=== PATIENT | female | born 1995 | race Caucasian/White ===

== ENCOUNTER 2018-02-23 08:16 | Emergency (ER) | payer BC ==
[2018-02-23 08:40] VITALS: BP 153/92
--- NOTE | 2018-02-23 09:01 | UC ---
Lower Extremity/Ankle HPI - HPI Summary HPI Summary: PAIN TOWARD FRONT OF LEFT HEEL SINCE STARTING TO WALK FOR EXERCISE A MONTH AGO. ADMITS TO WEARING SANDALS WHEN SHE WALKS - History of Current Complaint Chief Complaint: UCLowerExtremity Stated Complaint: LEFT FOOT PAIN Time Seen by Provider: 02/23/18 08:31 Hx Obtained From: Patient Hx Last Menstrual Period: "very irregular periods" Onset/Duration: Gradual Onset Pain Intensity: 7 Aggravating Factor(s): Standing, Ambulation Alleviating Factor(s): Rest Able to Bear Weight: Yes - Allergies/Home Medications Allergies/Adverse Reactions: Allergies Allergy/AdvReac Type Severity Reaction Status Date / Time No Known Allergies Allergy Verified 02/23/18 08:36 Home Medications: Home Medications Menthol/Aloe Vera Extract [Icy Hot 16% Power Gel] 1 applic TOPICAL ONCE [History Confirmed 02/23/18] PMH/Surg Hx/FS Hx/Imm Hx Previously Healthy: Yes - Surgical History Surgical History: Yes Surgery Procedure, Year, and Place: T&A, ~2005, [place] - Family History Known Family History: Positive: None - Social History Occupation: Works From/At Home - [employer] Alcohol Use: Occasionally Substance Use Type: None Smoking Status (MU): Never Smoked Tobacco - Immunization History Vaccination Up to Date: Yes Review of Systems Constitutional: Negative Skin: Negative Eyes: Negative ENT: Negative Respiratory: Negative Cardiovascular: Negative Gastrointestinal: Negative Genitourinary: Negative Motor: Negative Neurovascular: Negative Musculoskeletal: Other: - L HEEL PAIN Neurological: Negative Psychological: Negative Is Patient Immunocompromised?: No All Other Systems Reviewed And Are Negative: Yes Physical Exam Triage Information Reviewed: Yes Appearance: Well-Appearing Vital Signs: Initial Vital Signs Temp 98.9 F 02/23/18 08:33 Pulse 66 02/23/18 08:33 Resp 16 02/23/18 08:33 BP 153/92 02/23/18 08:33 Pulse Ox 98 02/23/18 08:33 Vital Signs Reviewed: Yes Eyes: Positive: Conjunctiva Clear ENT: Positive: Normal ENT inspection Neck: Positive: Supple, Nontender Respiratory: Positive: Lungs clear, Normal breath sounds Cardiovascular: Positive: RRR, No Murmur Abdomen Description: Positive: Nontender, No Organomegaly, Soft Bowel Sounds: Positive: Present Musculoskeletal: Positive: Other: - LLE: HIP, KNEE, ACHILLES AND ANKLE ARE NON TENDER. FOOT HAS NO GROSS DEFORMITY, SWELLING OR DISCOLORATION. TENDER TO ANTERIOR HEEL ON PLANTAR SURFACE. FOOT HAS FULL S/V/M FUNCTION. Neurological: Positive: Alert Psychological: Positive: Age Appropriate Behavior Skin Exam: Normal Lower Extremity Course/Dx - Course Course Of Treatment: EXAM C/W PLANTAR FASCIITIS. NO CONCERN FOR FX OR INFECTION. BP ELEVATED ON THIS VISIT AND D/W PT. NEED FOR F/U AND RECHECK DISCUSSED WELL. - Differential Dx/Diagnosis Provider Diagnoses: PLANTAR FASCIITIS. ELEVATED BP Discharge - Sign-Out/Discharge Documenting (check all that apply): Patient Departure - Discharge Plan Condition: Stable Disposition: HOME Prescriptions: Naproxen [Naprosyn 500 mg tab] 500 mg PO BID 5 Days #10 tablet Patient Education Materials: Plantar Fasciitis Exercises (GEN), Plantar Fasciitis (ED), Hypertension (ED) Referrals: KAI Bundy [Medical Doctor] - As Soon As Possible Mario Loera MD [Medical Doctor] - Additional Instructions: FOLLOW UP DR LOERA IF FOOT NOT IMPROVING WITHIN THE WEEK OR SOONER IF WORSE. DO NOT WEAR SANDALS WHEN YOU WALK-WEAR SNEAKERS WITH ARCH SUPPORT. - Billing Disposition and Condition Condition: STABLE Disposition: Home
== END 2018-02-23 09:11 | disposition home or self-care (01) ==
LOC: UCCORT 08:16
DX: M72.2 Plantar fascial fibromatosis (principal); R03.0 Elevated blood-pressure reading, without diagnosis of hypertension
CPT/HCPCS: 99202; G0463

== ENCOUNTER 2019-07-14 15:57 | Emergency (ER) | payer BC ==
[2019-07-14 16:40] VITALS: BP 174/99
--- NOTE | 2019-07-14 16:43 | UC ---
Respiratory Complaint HPI - HPI Summary HPI Summary: Pt had an unproductive cough for 2 weeks before . Around hayden time her cough is now a "deep, harsh" cough, sinus congestion and pressure, wheezing, low grade fever. Denies body aches. - History of Current Complaint Chief Complaint: UCGeneralIllness Stated Complaint: COUGH Hx Obtained From: Patient Hx Last Menstrual Period: 05/29/19 ?: No Onset/Duration: Sudden Onset, Lasting Weeks Timing: Constant Severity Initially: Mild Severity Currently: Moderate Pain Intensity: 0 Character: Cough: Productive Aggravating Factors: Exertion, Deep Breaths Associated Signs And Symptoms: Positive: URI, Nasal Congestion, Sinus Discomfort - Allergies/Home Medications Allergies/Adverse Reactions: Allergies Allergy/AdvReac Type Severity Reaction Status Date / Time No Known Allergies Allergy Verified 07/14/19 16:34 Home Medications: Home Medications Dm/Acetaminophen/Doxylamine [Nighttime Cold and Flu Liquid] 1 dose PO ONCE 07/14 [History Confirmed 07/14/19] PMH/Surg Hx/FS Hx/Imm Hx Previously Healthy: Yes - Surgical History Surgical History: Yes Surgery Procedure, Year, and Place: T&A, ~2005, [place] - Family History Known Family History: Positive: Hypertension - Social History Alcohol Use: Occasionally Substance Use Type: None Smoking Status (MU): Never Smoked Tobacco - Immunization History Vaccination Up to Date: Yes Review of Systems All Other Systems Reviewed And Are Negative: Yes Constitutional: Positive: Fatigue ENT: Positive: Sore Throat, Ear Ache, Nasal Discharge, Sinus Congestion Respiratory: Positive: Cough Is Patient Immunocompromised?: No Physical Exam Triage Information Reviewed: Yes Appearance: No Pain Distress, Well-Nourished, Ill-Appearing Vital Signs: Initial Vital Signs Temp 97.3 F 07/14/19 16:34 Pulse 76 07/14/19 16:34 Resp 16 07/14/19 16:34 BP 174/99 07/14/19 16:34 Pulse Ox 98 07/14/19 16:34 Vital Signs Reviewed: Yes Eye Exam: Normal ENT: Positive: Pharyngeal erythema, TM bulging, TM red Dental Exam: Normal Neck exam: Normal Respiratory: Positive: Normal breath sounds, No respiratory distress, Decreased breath sounds - throughout, Wheezing, Inspiration Cardiovascular Exam: Normal Cardiovascular: Positive: RRR, No Murmur, Pulses Normal Abdominal Exam: Normal Bowel Sounds: Positive: Present Musculoskeletal Exam: Normal Neurological Exam: Normal Psychological Exam: Normal Skin Exam: Normal Respiratory Course/Dx - Course Course Of Treatment: hx obtained, exam performed ,meds reviewed, - Differential Dx/Diagnosis Provider Diagnosis: Bronchitis, Sinusitis Discharge ED - Sign-Out/Discharge Documenting (check all that apply): Patient Departure All imaging exams completed and their final reports reviewed: No Studies - Discharge Plan Condition: Stable Disposition: HOME Prescriptions: Azithromycin TAB* [Zithromax TAB (Z-JASVIR) 250 mg #6 tabs] 250 mg PO DAILY #4 tab predniSONE [Prednisone 20 MG TAB] 40 mg PO DAILY #10 tablet Patient Education Materials: Sinusitis (ED), Acute Bronchitis (ED) Referrals: No Primary Care Phys,NOPCP [Primary Care Provider] - Additional Instructions: 1. take the medication as prescribe. 2. FOllow up if not improving with treatment - Billing Disposition and Condition Condition: STABLE Disposition: Home - Attestation Statements Provider Attestation: Per institutional requirements, I have reviewed the chart, however, I was not consulted specifically or made aware of this patient by the midlevel provider. I did not personally evaluate, interact with , or disposition this patient.
[2019-07-14] MEDS ORDERED: Azithromycin TAB* 250 MG PO ONE (17:10)
[2019-07-14] MEDS ORDERED: Albuterol HFA INHALER* 8 gm MDI INH ONE (17:11)
== END 2019-07-14 17:30 | disposition home or self-care (01) ==
LOC: UCCORT 15:57
DX: J40 Bronchitis, not specified as acute or chronic (principal); J32.9 Chronic sinusitis, unspecified; J02.9 Acute pharyngitis, unspecified; H92.09 Otalgia, unspecified ear
CPT/HCPCS: 99212; A9270-GY; G0463